=== PATIENT | male | born 1975 | race Caucasian/White ===

== ENCOUNTER 2022-04-19 17:04 | Emergency (ER) | payer BC ==
[2022-04-19] MEDS ORDERED: Sodium Chloride 0.9% 10 ML Syringe FLUSH PRN (17:21)
== END 2022-04-19 19:15 | disposition home or self-care (01) ==
LOC: JD.ED 17:04
DX: R07.89 Other chest pain (principal)
CPT/HCPCS: 36415; 71045; 71045-26; 80053; 83735; 83880; 84484; 85025; 85610; 85730; 93005; 93010; 99284; 99285

== ENCOUNTER 2022-04-19 20:41 | Emergency (ER) | payer BC ==
[2022-04-19] MEDS ORDERED: Ondansetron 4 MG/2 ML SDV IVPUSH ONE (21:04)
[2022-04-19] MEDS ORDERED: Sodium Chloride 0.9% 10 ML Syringe FLUSH PRN (21:04)
[2022-04-19] MEDS ORDERED: Ondansetron 4 MG/2 ML SDV ONE (21:05)
[2022-04-19] MEDS ORDERED: Sodium Chloride 0.9% 1,000 ML IV SCH (21:15)
[2022-04-19 22:02] LABS: CORONAVIRUS COVID-19 NAA NEGATIVE (NEGATIVE)
[2022-04-20] MEDS ORDERED: Lactated Ringers 1,000 ML IV SCH (01:30)
== END 2022-04-20 01:25 ==
LOC: JD.ED 20:41
DX: I46.9 Cardiac arrest, cause unspecified (principal); R55 Syncope and collapse; Z20.822 Contact with and (suspected) exposure to COVID-19
CPT/HCPCS: 0241U; 36415; 80053; 84484; 85025; 87040; 93005; 96361; 96374; 99285; J2405; J3490; J7030; 93010